=== PATIENT | female | born 1990 | race Two or more races ===

== ENCOUNTER 2021-09-03 09:00 | Inpatient (IN) | payer OTHER ==
[~2021-09-03] VITALS: Ht 160 cm; Wt 3.2 kg
[2021-09-03] MEDS ORDERED: PRENATAL PO (11:19)
[2021-09-08] MEDS ORDERED: PRENATAL + DHA1 EAC1 PO (10:50)
== END 2021-09-13 15:44 | disposition home or self-care (01) | DRG 788 ==
LOC: OB/GYN 09-08 07:52 → O/R 09-08 07:52 → LDR 09-08 09:00 → OB/GYN 09-08 15:13
PROVIDERS: ADMIT Obstetrics & Gynecology; ATTEND Obstetrics & Gynecology
PROC: 4A1HXFZ Monitoring of Products of Conception, Cardiac Rhythm, External Approach (ICD-10-PCS; 2021-09-08)
PROC: 10D00Z1 Extraction of Products of Conception, Low, Open Approach (ICD-10-PCS; principal; 2021-09-08 09:15)
DX: O82 Encounter for cesarean delivery without indication (principal); Z37.0 Single live birth; Z3A.39 39 weeks gestation of pregnancy

== ENCOUNTER 2021-09-05 16:40 | Outpatient (CLI) | payer OTHER ==
[~2021-09-05 16:40] MED LIST: PRENATAL PO
== END 2021-09-05 17:20 | disposition home or self-care (01) ==
LOC: NST 16:40
PROVIDERS: ATTEND Obstetrics & Gynecology Maternal & Fetal Medicine
DX: O47.1 False labor at or after 37 completed weeks of gestation (principal)